=== PATIENT | female | born 1995 ===

== ENCOUNTER 2020-10-06 12:03 | Emergency (ER) | payer SELFPAY ==
[2020-10-06 12:43] VITALS: BP 109/57
--- NOTE | 2020-10-06 12:59 | Emergency Department Report ---
ED Female HPI - General Chief complaint: Urogenital-Female Stated complaint: POSS UTI Time Seen by Provider: 10/06/20 12:46 Source: patient Mode of arrival: Ambulatory Limitations: No Limitations - History of Present Illness Initial comments: 25-year-old female presents to the emergency room complaining of back pain, dysuria, urinary frequency and urgency x4 days. She reports vaginal discharge and pain with sex x7 days. She denies any fever chills no nausea no vomiting no abdominal pain no concern for STD. Patient states she is started on Azo yesterday. Last menstrual period 4-21. 3 para 3. MD Complaint: vaginal discharge, dysuria Onset/Timin -: days(s) Severity scale (0 -10): 0 Improves with: none Worsens with: urination Are you Now?: No Last Menstrual Period: 09/12/20 EDC: 06/19/21 Associated Symptoms: vaginal discharge, dysuria. denies: vaginal bleeding, abdominal pain, nausea/vomiting, fever/chills, headaches, loss of appetite, shortness of breath - Related Data Sexually active: Yes : 3 Para: 3 Previous Rx's Medication Instructions Recorded Last Taken Type Nitrofurantoin Towns/M-Cryst 100 mg PO Q12HR 10 Days #20 capsule 10/06/20 Unknown Rx [Macrobid CAP] Allergies Allergy/AdvReac Type Severity Reaction Status Date / Time No Known Allergies Allergy Unverified 10/06/20 12:42 ED Review of Systems ROS: Stated complaint: POSS UTI Other details as noted in HPI Comment: All other systems reviewed and negative ED Past Medical Hx - Past Medical History Previous Medical History?: No - Surgical History Past Surgical History?: No - Social History Smoking Status: Never Smoker Substance Use Type: None - Medications Home Medications: Home Medications Medication Instructions Recorded Confirmed Last Taken Type Nitrofurantoin Towns/M-Cryst 100 mg PO Q12HR 10 Days #20 capsule 10/06/20 Unkn own Rx [Macrobid CAP] ED Physical Exam - General Limitations: No Limitations General appearance: alert, in no apparent distress - Head Head exam: Present: atraumatic, normocephalic - Eye Eye exam: Present: normal appearance - ENT ENT exam: Present: mucous membranes moist - Neck Neck exam: Present: normal inspection - Respiratory Respiratory exam: Present: normal lung sounds bilaterally. Absent: respiratory distress - Cardiovascular Cardiovascular Exam: Present: regular rate, normal rhythm. Absent: systolic murmur, diastolic murmur, rubs, gallop - GI/Abdominal GI/Abdominal exam: Present: soft, normal bowel sounds - Extremities Exam Extremities exam: Present: normal inspection - Back Exam Back exam: Present: normal inspection - Neurological Exam Neurological exam: Present: alert, oriented X3 - Psychiatric Psychiatric exam: Present: normal affect, normal mood - Skin Skin exam: Present: warm, dry, intact, normal color. Absent: rash ED Course Vital Signs 10/06/20 10/06/20 12:34 12:43 Temperature 97.9 F Pulse Rate 98 H 80 Respiratory 26 H 18 Rate Blood Pressure 109/57 [Right] O2 Sat by Pulse 95 100 Oximetry ED Medical Decision Making - Medical Decision Making 25-year-old female presents to the emergency room complaining of back pain, dysuria, urinary frequency and urgency x4 days. She reports vaginal discharge and pain with sex x7 days. She denies any fever chills no nausea no vomiting no abdominal pain no concern for STD. Patient states she is started on Azo yesterday. Last menstrual period 4-21. 3 para 3 Critical care attestation.: If time is entered above; I have spent that time in minutes in the direct care of this critically ill patient, excluding procedure time. ED Disposition Clinical Impression: UTI (urinary tract infection) Qualifiers: Urinary tract infection type: site unspecified Hematuria presence: with hematuria Qualified Code(s): N39.0 - Urinary tract infection, site not specified; R31.9 - Hematuria, unspecified Disposition: - TO HOME OR SELFCARE Is pt being admited?: No Does the pt Need Aspirin: No Condition: Stable Instructions: Urinary Tract Infection, Adult, [id number] Additional Instructions: Urine is positive for urinary tract infection. Complete antibiotics as prescribed. You can continue with the AZO. Increase your water intake by 2 to 3 L daily. Void after intercourse. Follow-up with the [facility] for your vaginal discharge. Prescriptions: Nitrofurantoin Towns/M-Cryst [Macrobid CAP] 100 mg PO Q12HR 10 Days #20 capsule Referrals: [facility] [Provider Group] - 3-5 Days [facility] [Provider Group] - 3-5 Days [facility] [Provider Group] - 3-5 Days Forms: Work/School Release Form(ED)
[2020-10-06 13:09] LABS: Bacteria,Urine 1+ /HPF (Negative); Bilirubin,Urine NEG (Negative); Blood,Urine MOD (Negative); Color,Urine Amber (Yellow); Mucus,Urine 2+ /HPF
[2020-10-06 13:10] LABS: HCG Qualitative,Urine Negative (Negative)
== END 2020-10-06 14:16 | disposition home or self-care (01) ==
LOC: ED 12:03
DX: N39.0 Urinary tract infection, site not specified (principal); Z79.899 Other long term (current) drug therapy
CPT/HCPCS: 81001; 81025; 87086